=== PATIENT | female | born 1930 | race Caucasian/White ===

== ENCOUNTER 2018-04-14 20:30 | Observation (INO) | payer OTHER, MEDICARE ==
[~2018-04-14] VITALS: Ht 144.8 cm; Wt 58.6 kg
[2018-04-14 21:10] LABS: HEMOGLOBIN 9.8 G/DL (11.9-15.5); MCH 32.5 PG (29.0-34.0); MCHC 33.8 G/DL (30.0-36.0); PLATELET COUNT 301 K/uL (156-360); RBC DIS.WIDTH-CV 13.2 % (11.8-14.6); RED BLOOD COUNT 3.02 M/uL (3.80-5.20); WHITE BLOOD COUNT 5.1 K/uL (4.1-10.2)
[2018-04-14 21:19] LABS: CHLORIDE 107 mEq/L (99-109); POTASSIUM 3.9 mEq/L (3.7-5.4); SODIUM 143 mEq/L (136-147)
[2018-04-14 21:21] LABS: GLUCOSE 172 mg/dL (70-99)
[2018-04-14 21:24] LABS: CREATININE 0.9 mg/dL (0.6-1.3); GFR ESTIMATE (CALCULATED) > 59 mL/min/
[2018-04-14 21:25] LABS: UREA NITROGEN (BUN) 20 mg/dL (9-23)
[2018-04-14 21:43] LABS: ALBUMIN 3.7 g/dL (3.2-4.8)
[2018-04-14 21:48] LABS: TOTAL BILIRUBIN 0.2 mg/dL (0.0-1.0)
[2018-04-14 21:49] LABS: ALKALINE PHOSPHATASE 78 IU/L (3-129)
[2018-04-14 21:51] LABS: AST (GOT) 11 IU/L (2-34)
[2018-04-14 21:52] LABS: ALT (GPT) 8 IU/L (3-49); DIRECT BILIRUBIN 0.1 mg/dL (0.0-0.3)
[2018-04-14 21:53] LABS: LIPASE 35 U/L (1.0-51.0)
[2018-04-14 21:56] LABS: TROP-I INTERPRETATION NEGATIVE; TROPONIN-I 0.01 ng/mL (0.0-0.30)
[2018-04-14 23:02] LABS: APPEARANCE SL.HAZY ((CLEAR)); BILIRUBIN NEGATIVE; BLOOD SMALL; COLOR YELLOW ((YELLOW)); GLUCOSE (STRIP) NEGATIVE; KETONES NEGATIVE; LEUKOCYTES LARGE; NITRITE POSITIVE; PROTEIN (STRIP) NEGATIVE; SPECIFIC GRAVITY 1.012 (1.000-1.030); UROBILINOGEN 0.2 MG/DL (0.2-1.0)
[2018-04-14 23:17] LABS: BACTERIA RARE /HPF; EPITHELIAL CELLS RARE /HPF; MUCUS TRACE /LPF; UCUL ADDED? YES; WHITE BLOOD CELLS TNTC /HPF (0-5)
[2018-04-14] MEDS ORDERED: HYDROCHLOROTHIA25 MG PO (23:37)
[2018-04-14] MEDS ORDERED: LEVOTHYROXINE50 MCG PO (23:37)
[2018-04-14] MEDS ORDERED: LEVEMIR FL100 UNIT/1 SC (23:38)
[2018-04-14] MEDS ORDERED: ADULT ASPIRIN R81 MG PO (23:38)
[2018-04-14] MEDS ORDERED: GLUCOPHAGE500 MG PO ×2 (23:38)
[2018-04-14] MEDS ORDERED: LISINOPRIL40 MG PO (23:38)
[2018-04-14] MEDS ORDERED: METOPROLOL SUCC50 MG PO (23:38)
[2018-04-14] MEDS ORDERED: PRAVACHOL40 MG PO (23:38)
[2018-04-14] MEDS ORDERED: CALCIUM 500 MG1 EACH PO (23:39)
[2018-04-14] MEDS ORDERED: DAILY VALUE1 EACH PO (23:39)
[2018-04-14] MEDS ORDERED: GARLIC100 MG PO (23:39)
[2018-04-14] MEDS ORDERED: FISH OIL 1,0001 EAC7 PO (23:39)
[2018-04-15] VITALS (7 sets, daily range): BP systolic 113–186; BP diastolic 58–79
[2018-04-15 05:49] LABS: HDL CHOLESTEROL 26 MG/DL (Desirable>=50); LDL CHOLESTEROL 74 mg/dL (Desirable<100); NON-HDL CHOLESTEROL 101 mg/dL (Desirable<160); TOTAL CHOLESTEROL 127 mg/dL (Desirable<200); TRIGLYCERIDES 134 MG/DL (Normal: <150)
[2018-04-15 11:18] LABS: HEMOGLOBIN A1c (GLYCOHEMOGLOB) 7.7 % (Below 5.7)
[2018-04-16 05:10] VITALS: BP 118/64
[2018-04-16 05:35] LABS: HEMATOCRIT 27.5 % (36.0-46.0); MCHC 32.7 G/DL (30.0-36.0); MCV 94.8 FL (83-99); PLATELET COUNT 293 K/uL (156-360); RBC DIS.WIDTH-CV 12.8 % (11.8-14.6); RBC DIS.WIDTH-SD 44.4 % (39-53); WHITE BLOOD COUNT 7.5 K/uL (4.1-10.2)
[2018-04-16 05:55] LABS: CHLORIDE 107 MEQ/L (99-109); CREATININE 0.8 MG/DL (0.6-1.3); GFR ESTIMATE (CALCULATED) > 59 mL/min/; POTASSIUM 3.7 MEQ/L (3.7-5.4); SODIUM 143 MEQ/L (136-147); UREA NITROGEN (BUN) 16 mg/dL (9-23)
[2018-04-16 06:01] LABS: GLUCOSE 82 mg/dL (70-99)
[2018-04-16 08:30] VITALS: BP 139/59
[2018-04-16] MEDS ORDERED: BACTRIM,SEPT1 TABLET PO (10:33)
== END 2018-04-16 12:22 | disposition home or self-care (01) ==
LOC: EME → EDBD 20:30 → EME 20:30 → 4SOUTH 04-15 00:22 → EDOF 04-15 00:22 → ENRESERV 04-15 00:24 → 4SOUTH 04-15 01:31 → ENPENDDIS 04-16 10:38 → 4SOUTH 04-16 12:22
PROVIDERS: Emergency Medicine; Hospitalist; Internal Medicine; Physician Assistant
DX: N30.00 Acute cystitis without hematuria (principal); M48.56XA Collapsed vertebra, not elsewhere classified, lumbar region, initial encounter for fracture; I10 Essential (primary) hypertension; E78.5 Hyperlipidemia, unspecified; E11.9 Type 2 diabetes mellitus without complications; E03.9 Hypothyroidism, unspecified; I25.10 Atherosclerotic heart disease of native coronary artery without angina pectoris; B96.20 Unspecified Escherichia coli [E. coli] as the cause of diseases classified elsewhere; I44.1 Atrioventricular block, second degree; R00.1 Bradycardia, unspecified; Z95.5 Presence of coronary angioplasty implant and graft; E86.0 Dehydration; R29.6 Repeated falls; M25.551 Pain in right hip; Z90.5 Acquired absence of kidney; Z82.49 Family history of ischemic heart disease and other diseases of the circulatory system; Z79.4 Long term (current) use of insulin; Z79.82 Long term (current) use of aspirin
CPT/HCPCS: 70450; 70551; 71046; 72125; 72131; 73502; 80048; 80061; 80076; 81003; 82948; 83036; 83690; 84443; 84484; 85027; 87077; 87086 GA; 87186; 93005; 93880; 99281; 99285; G0378; G8978 GP CI; G8979 GP CH; G8980 GP CI; J0696; J1644; J7030

== ENCOUNTER 2018-04-17 23:25 | Inpatient (IN) | payer OTHER, MEDICARE ==
[~2018-04-17] VITALS: Ht 160 cm; Wt 58.3 kg
[~2018-04-17 23:25] MED LIST: ADULT ASPIRIN R81 MG PO; BACTRIM,SEPT1 TABLET PO; CALCIUM 500 MG1 EACH PO; DAILY VALUE1 EACH PO; FISH OIL 1,0001 EAC7 PO; GARLIC100 MG PO; GLUCOPHAGE500 MG PO; HYDROCHLOROTHIA25 MG PO; LEVEMIR FL100 UNIT/1 SC; LEVOTHYROXINE50 MCG PO; LISINOPRIL40 MG PO; METOPROLOL SUCC50 MG PO; PRAVACHOL40 MG PO
[2018-04-18 00:10] LABS: BASOPHIL (%) 0.3 % (0-1); EOSINOPHIL (%) 0 % (0-5); HEMATOCRIT 28.7 % (36.0-46.0); HEMOGLOBIN 9.7 G/DL (11.9-15.5); IMMATURE GRANULOCYTE (%) 0.5 % (0.0-0.7); LYMPHOCYTE (%) 2.6 % (15-42); LYMPHOCYTE COUNT 0.2 K/uL (1.0-2.8); MCH 31.7 PG (29.0-34.0); MCHC 33.8 G/DL (30.0-36.0); MCV 93.8 FL (83-99); MONOCYTE (%) 2.9 % (3-12); MONOCYTE COUNT 0.2 K/uL (0-0.8); NEUTROPHIL (%) 93.7 % (45-76); NEUTROPHIL COUNT 5.4 K/uL (1.8-6.4); PLATELET COUNT 258 K/uL (156-360); RBC DIS.WIDTH-CV 13.1 % (11.8-14.6); RBC DIS.WIDTH-SD 44.8 % (39-53); RED BLOOD COUNT 3.06 M/uL (3.80-5.20); WHITE BLOOD COUNT 5.8 K/uL (4.1-10.2)
[2018-04-18 00:19] LABS: ALBUMIN 3.6 g/dL (3.2-4.8); CHLORIDE 103 mEq/L (99-109); POTASSIUM 3.5 mEq/L (3.7-5.4); SODIUM 139 mEq/L (136-147)
[2018-04-18 00:21] LABS: TOTAL PROTEIN 6.3 g/dL (6.4-8.3)
[2018-04-18 00:24] LABS: GLUCOSE 216 mg/dL (70-99); TOTAL BILIRUBIN 0.3 mg/dL (0.0-1.0)
[2018-04-18 00:25] LABS: ALKALINE PHOSPHATASE 71 IU/L (3-129); CREATININE 1.1 mg/dL (0.6-1.3); GFR ESTIMATE (CALCULATED) 50 mL/min/
[2018-04-18 00:26] LABS: UREA NITROGEN (BUN) 14 mg/dL (9-23)
[2018-04-18 00:28] LABS: ALT (GPT) 10 IU/L (3-49)
[2018-04-18 00:29] LABS: AST (GOT) 18 IU/L (2-34)
[2018-04-18 00:31] LABS: TROP-I INTERPRETATION NEGATIVE; TROPONIN-I 0.03 ng/mL (0.0-0.30)
[2018-04-18 00:54] LABS: APPEARANCE SL.HAZY ((CLEAR)); BILIRUBIN NEGATIVE; BLOOD NEGATIVE; COLOR YELLOW ((YELLOW)); GLUCOSE (STRIP) 150; KETONES NEGATIVE; LEUKOCYTES LARGE; NITRITE NEGATIVE; PROTEIN (STRIP) NEGATIVE; SPECIFIC GRAVITY 1.017 (1.000-1.030); UROBILINOGEN 0.2 MG/DL (0.2-1.0)
[2018-04-18 01:01] LABS: BACTERIA NONE SEEN /HPF; EPITHELIAL CELLS 1+ /HPF; MUCUS TRACE /LPF; RED BLOOD CELLS 0-5 /HPF (0-5); UCUL ADDED? YES; WHITE BLOOD CELLS TNTC /HPF (0-5)
[2018-04-18 03:23] VITALS: BP 124/56
[2018-04-18 07:12] VITALS: BP 144/58
[2018-04-18 12:00] VITALS: BP 126/82
[2018-04-18 16:12] VITALS: BP 141/67
[2018-04-18 20:00] VITALS: BP 127/60
[2018-04-18 23:51] VITALS: BP 99/48
[2018-04-19 04:26] VITALS: BP 111/54
[2018-04-19 05:26] LABS: BASOPHIL (%) 0.4 % (0-1); EOSINOPHIL (%) 0.4 % (0-5); HEMATOCRIT 25.8 % (36.0-46.0); HEMOGLOBIN 8.3 G/DL (11.9-15.5); IMMATURE GRANULOCYTE (%) 0.4 % (0.0-0.7); LYMPHOCYTE COUNT 0.7 K/uL (1.0-2.8); MCH 30.9 PG (29.0-34.0); MCHC 32.2 G/DL (30.0-36.0); MCV 95.9 FL (83-99); MONOCYTE (%) 7.1 % (3-12); MONOCYTE COUNT 0.3 K/uL (0-0.8); NEUTROPHIL (%) 76.7 % (45-76); NEUTROPHIL COUNT 3.6 K/uL (1.8-6.4); PLATELET COUNT 229 K/uL (156-360); RBC DIS.WIDTH-CV 13.2 % (11.8-14.6); RBC DIS.WIDTH-SD 46.3 % (39-53); RED BLOOD COUNT 2.69 M/uL (3.80-5.20); WHITE BLOOD COUNT 4.7 K/uL (4.1-10.2)
[2018-04-19 06:08] LABS: CHLORIDE 106 MEQ/L (99-109); GFR ESTIMATE (CALCULATED) 56 mL/min/; GLUCOSE 172 mg/dL (70-99); SODIUM 142 MEQ/L (136-147); UREA NITROGEN (BUN) 17 mg/dL (9-23)
[2018-04-19 08:15] VITALS: BP 120/59
[2018-04-19 16:22] VITALS: BP 139/62
[2018-04-19 19:29] VITALS: BP 146/63
[2018-04-20 00:04] VITALS: BP 126/60
[2018-04-20 04:21] VITALS: BP 142/61
[2018-04-20 08:00] VITALS: BP 123/58
[2018-04-20 11:49] VITALS: BP 141/65
[2018-04-20 16:00] VITALS: BP 111/57
[2018-04-20 19:52] VITALS: BP 147/66
[2018-04-21 00:14] VITALS: BP 135/63
[2018-04-21 03:47] VITALS: BP 172/71
[2018-04-21 04:59] LABS: HEMATOCRIT 26.8 % (36.0-46.0); HEMOGLOBIN 8.8 G/DL (11.9-15.5); MCH 31.5 PG (29.0-34.0); MCHC 32.8 G/DL (30.0-36.0); MCV 96.1 FL (83-99); PLATELET COUNT 248 K/uL (156-360); RED BLOOD COUNT 2.79 M/uL (3.80-5.20); WHITE BLOOD COUNT 3.5 K/uL (4.1-10.2)
[2018-04-21 05:17] LABS: CHLORIDE 109 mEq/L (99-109); POTASSIUM 3.8 mEq/L (3.7-5.4); SODIUM 144 mEq/L (136-147)
[2018-04-21 05:19] LABS: GLUCOSE 105 mg/dL (70-99)
[2018-04-21 05:23] LABS: CREATININE 0.9 mg/dL (0.6-1.3); GFR ESTIMATE (CALCULATED) > 59 mL/min/
[2018-04-21 05:24] LABS: UREA NITROGEN (BUN) 12 mg/dL (9-23)
[2018-04-21 06:47] LABS: BASOPHIL (%) 0.8 % (0-1); EOSINOPHIL COUNT 0.1 K/uL (0-0.3); IMMATURE GRANULOCYTE (%) 0.3 % (0.0-0.7); LYMPHOCYTE (%) 25.7 % (15-42); LYMPHOCYTE COUNT 0.9 K/uL (1.0-2.8); MONOCYTE (%) 7.1 % (3-12); MONOCYTE COUNT 0.3 K/uL (0-0.8); NEUTROPHIL (%) 62.1 % (45-76); NEUTROPHIL COUNT 2.2 K/uL (1.8-6.4)
[2018-04-21 09:34] VITALS: BP 170/70
[2018-04-21 11:15] VITALS: BP 140/69
[2018-04-21] MEDS ORDERED: CIPRO500 MG PO (14:23)
[2018-04-21 14:41] VITALS: BP 142/63
== END 2018-04-21 16:52 | disposition home health service (06) | DRG 690 ==
LOC: EME 23:25 → EDOF 04-18 02:10 → 4SOUTH 04-18 02:10 → ENRESERV 04-18 02:13 → 4SOUTH 04-18 02:56 → ENRESERV 04-21 12:41 → 5SOUTH 04-21 14:29
PROVIDERS: Emergency Medicine; Internal Medicine; Nurse Practitioner Adult Health; Student in an Organized Health Care Education/Training Program
DX: N39.0 Urinary tract infection, site not specified (principal); B96.5 Pseudomonas (aeruginosa) (mallei) (pseudomallei) as the cause of diseases classified elsewhere; K22.5 Diverticulum of esophagus, acquired; R13.12 Dysphagia, oropharyngeal phase; R42 Dizziness and giddiness; J98.11 Atelectasis; E87.6 Hypokalemia; R09.02 Hypoxemia; M48.56XA Collapsed vertebra, not elsewhere classified, lumbar region, initial encounter for fracture; E11.9 Type 2 diabetes mellitus without complications; I44.1 Atrioventricular block, second degree; I10 Essential (primary) hypertension; N20.0 Calculus of kidney; E78.5 Hyperlipidemia, unspecified; D64.9 Anemia, unspecified; E03.9 Hypothyroidism, unspecified; I25.10 Atherosclerotic heart disease of native coronary artery without angina pectoris; K21.9 Gastro-esophageal reflux disease without esophagitis; K59.00 Constipation, unspecified; H91.90 Unspecified hearing loss, unspecified ear; Z79.4 Long term (current) use of insulin; Z79.82 Long term (current) use of aspirin; Z90.5 Acquired absence of kidney; Z98.61 Coronary angioplasty status; Z60.2 Problems related to living alone
CPT/HCPCS: 71046; 74177; 74230; 80048; 80053; 81003; 82948; 83605; 84484; 85025; 87040; 87077; 87086; 87186; 92610 GN; 92611 GN; 94799; 97530 GO; 99281; 99285; A6214; G0378; G8978 GP CM; G8979 GP CK; G8987 GO CL; G8988 GO CK; G8996 GN CH; G8996 GN CJ; G8997 GN CH; G8997 GN CJ; G8998 GN CH; J1650; J1815; J2543; J3370; J7050